=== PATIENT | male | born 2000 | race Caucasian/White ===

== ENCOUNTER 2022-03-29 18:50 | Emergency (ER) | payer OTHER ==
[~2022-03-29] VITALS: Ht 177.8 cm; Wt 74.8 kg
--- NOTE | 2022-03-29 19:33 | ED Lower Extremity ---
General Chief Complaint: Laceration Stated Complaint: RIGHT LEG LAC Nursing Triage Note: PT TO RM 7 WITH CC OF R LOWER LEG LACERATION. PT STATES A GLASS FELL IN THE KITCHEN AND CUT HIM. (JENNY HARO) History of Present Illness Date Seen by Provider: Mar 29, 2022 Time Seen by Provider: 18:56 Initial Comments 22 year old male presents with laceration to right lower leg that occurred approximately 2 hours ago, when a glass fell off the counter and cut his right lower leg. Last tetanus within 5 years. Onset: just prior to arrival Pain/Injury Location: right leg Method of Injury: incised (JENNY HARO) Allergies and Home Medications Patient Home Medication List Home Medication List Reviewed: Yes (JENNY HARO) Review of Systems Constitutional: no symptoms reported, see HPI Skin: see HPI, other (laceration right lower leg) (JENNY HARO) All Other Systems Reviewed Negative Unless Noted: Yes (JENNY HARO) Past Zzfcmbo-Jagnbs-Gtrrcl Hx Patient Social History Tobacco Use?: No Substance use?: No Alcohol Use?: No Pt feels they are or have been: No (JENNY HARO) Family Medical History Reviewed Nursing Family Hx (JENNY HARO) Physical Exam Vital Signs Vital Signs - First Documented 03/29/22 18:56 Temp 36.4 Pulse 79 Resp 16 B/P (MAP) 140/85 (103) Pulse Ox 97 O2 Delivery Room Air (MARI,MANJEET K DO) Vital Signs Capillary Refill : Less Than 3 Seconds (JENNY HARO) Height, Weight, BMI Height: '" Weight: lbs. oz. kg; 23.00 BMI Method: General Appearance: WD/WN, no apparent distress Cardiovascular: normal peripheral pulses, regular rate, rhythm Respiratory: chest non-tender, lungs clear, normal breath sounds Legs: right leg non-tender, right leg normal range of motion, right leg other (1.5 cm laceration, no active bleeding. ) Neurologic/Psychiatric: no motor/sensory deficits, alert, normal mood/affect, oriented x 3 Skin: normal color, warm/dry (JENNY HARO) Procedures/Interventions Wound Location: Lower Extremities (right lower leg, medial aspect) Wound Length (cm): 1.5 Wound's Depth, Shape: superficial Wound Explored: clean Irrigated w/ Saline (ccs): 100 Betadine Prep?: Yes Anesthesia: 1% Lidocaine Volume Anesthetic (ccs): 4 Suture Size: 4-0 Number of Sutures: 2 Sterile Dressing Applied?: Yes Progress Wound well approximated, bulky dressing in place, patient tolerated well. (JENNY HARO) Progress/Results/Core Measures Results/Orders Vital Signs/I&O 03/29/22 03/29/22 18:56 19:35 Temp 36.4 Pulse 79 79 Resp 16 16 B/P (MAP) 140/85 (103) 140/85 Pulse Ox 97 97 O2 Delivery Room Air Room Air (MANJEET GUERRA DO) Blood Pressure Mean: 103 Departure Impression Primary Impression: Laceration of right lower leg Qualified Codes: S81.811A - Laceration without foreign body, right lower leg , initial encounter Disposition: HOME, SELF-CARE Condition: Improved Departure-Patient Inst. Decision time for Depature: 19:15 (JENNY HARO) Referrals: NO,LOCAL PHYSICIAN (PCP) Primary Care Physician LAURIE MURRAY MD Patient Instructions: Laceration Repair With Stitches (DC) Add. Discharge Instructions: Keep the dressing dry and in place for 24 hours, you may re-inforce if needed. Do not submerge the wound in standing water (tub, pool, sink, palomares, etc). Leave sutures in place, return to Emergency Dept or [facility] in 7-10 days for removal. You may shower, do not have water hit directly over wound. Clean with peroxide after shower, leave open to air when at home, cover with dressing or band-aid when out of the house. Watch for signs of infection: Redness, increased tenderness, warmth, discolored drainage or foul smelling drainage. Return to the emergency department for new, urgent health care problems. All discharge instructions reviewed with patient and/or family. Voiced understanding. ATTENDING PHYSICIAN NOTE: I WAS PHYSICALLY PRESENT ER PHYSICIAN, BUT I WAS NOT INVOLVED IN ANY DECISION MAKING OR ANY CARE OF THIS PATIENT, AND I AM NOT COLLABORATING PHYSICIAN. (MANJEET GUERRA DO) Copy Copies To 1: LAURIE MURRAY MD, AMY ARNP Mar 29, 2022 19:33 MANJEET GUERRA DO Mar 30, 2022 00:40
[2022-03-29 19:35] VITALS: BP 140/85
== END 2022-03-29 19:35 | disposition home or self-care (01) ==
LOC: ER 18:53
DX: S81.811A Laceration without foreign body, right lower leg, initial encounter (principal); Z28.310 Unvaccinated for COVID-19; W25.XXXA Contact with sharp glass, initial encounter

== ENCOUNTER 2023-05-15 16:06 | Emergency (ER) | payer OTHER ==
[~2023-05-15] VITALS: Ht 177 cm; Wt 74.8 kg
--- NOTE | 2023-05-15 16:48 | ED General ---
General Chief Complaint: Head/Cervical Problems Stated Complaint: HEAD INJ Nursing Triage Note: PATIENT REPORTS TO ED POV FOR LOW BACK PAIN. PATIENT ALSO REPORTS THAT HE NOTED BLOOD ON THIS PILLOW TODAY AFTER HE SHOWERED. PATIENT FELL OFF THE BACK OF A GOLF CART LAST WEDNESDAY AND WAS ASSESSED DENNIS. PATIENT HAD A BRAIN BLEED AT THAT TIME. DAD AT BEDSIDE WITH PATIENT. Source of Information: Patient Exam Limitations: No Limitations History of Present Illness Date Seen by Provider: May 15, 2023 Time Seen by Provider: 16:25 Initial Comments Here after noting blood on his pillow today when he woke up. Apparently last weekend he had a fall off a golf cart at cause loss of consciousness and was noted to have a brain bleed of some point after finding left hemotympanums at the emergency department. He was admitted to [facility] for the this overnight and then discharged next day with follow-up in June. He was told to follow concussion instructions but they are confused about that. Over the last 2 days he has developed some increasing low back pain especially on the left and does have abrasion in the area of pain. States he is not sure if it is from laying around or from something else but wanted to get checked out. Denies difficulty with bowel or bladder and denies numbness between his legs or difficulty walking although it takes him a while to get going sometimes because of the pain. He states he will get some shooting pain on the left to the left hip area and that will happen about 3 times and then he is able to start walking and then he is okay but still sore on his low back bilateral after that. Denies numbness between his legs, fevers or pain in this area after injury. This is only, over the last 2 days. Denies persistent bleeding and is not sure if he had a nosebleed or if it came from his ear but he believes it came from his left ear. States is not currently bleeding anywhere. Does complain of some fullness of the left ear. He does state that his head feels better today that it has all week. Timing/Duration: 2-3 Days Severity: Moderate Associated Systoms: No Headaches, No Nausea/Vomiting, No Shortness of Air, No Weakness Allergies and Home Medications Patient Home Medication List Home Medication List Reviewed: Yes Review of Systems Review of Systems Constitutional: see HPI; No fever EENTM: ear discharge, ear pain (Wellness) Respiratory: No cough, No short of breath Cardiovascular: No chest pain, No edema Gastrointestinal: No nausea, No vomiting Genitourinary: no symptoms reported Musculoskeletal: back pain, muscle pain Skin: change in color, lesions Psychiatric/Neurological: Denies Headache, Denies Weakness Past Unbohej-Onjhsm-Zctfsv Hx Patient Social History Tobacco Use?: Yes Smoking Status: Light Tobacco Smoker Use of E-Cig and/or Vaping dev: Yes E-Cig or Vaping type used: Nicotine Use of E-Cig and/or Vaping Torsten: Light User Substance type: Marijuana Substance frequency: Once in a while Alcohol Use?: Yes Alcohol type: Beer Alcohol Frequency: Couple times a week Pt feels they are or have been: No Past Medical History Surgery/Hospitalization HX: DENIES PMH. SURG. TUBES BILATERALLY A CHILD. Surgeries: Yes Ear Surgery Neurological: Yes Concussion Family Medical History Reviewed Nursing Family Hx Physical Exam Vital Signs Vital Signs - First Documented 05/15/23 16:12 Temp 36.0 Pulse 66 Resp 18 B/P (MAP) 133/77 (95) Pulse Ox 100 O2 Delivery Room Air Capillary Refill : Less Than 3 Seconds Height, Weight, BMI Height: '" Weight: lbs. oz. kg; 23.00 BMI Method: General Appearance: No Apparent Distress, WD/WN HEENT: PERRL/EOMI, Pharynx Normal, Other (Left hemotympanums noted without obvious rupture. No bloody drainage noted. Nares evaluated and left nare does have some dryness but no active bleeding and no obvious old blood. Pharynx is normal.) Neck: Non Tender, Supple Respiratory: Lungs Clear, Normal Breath Sounds Cardiovascular: Regular Rate, Rhythm, No Murmur Back: No Vertebral Tenderness, Muscle Spasm (Bilateral low back with left greater than right) Neurologic/Psychiatric: Alert, Oriented x3 Skin: Warm/Dry, Other (Abrasion noted to the area of the left low back. Pelvis is stable and hips are nontender. No obvious deformity near area of abrasion. Healing wounds to the top of both shoulders.) Procedures/Interventions Suture Size: 4-0 Progress/Results/Core Measures Suspected Sepsis SIRS Temperature: Pulse: 66 Respiratory Rate: 18 Blood Pressure 133 /77 Mean: 95 Results/Orders Vital Signs/I&O 05/15/23 16:12 Temp 36.0 Pulse 66 Resp 18 B/P (MAP) 133/77 (95) Pulse Ox 100 O2 Delivery Room Air Capillary Refill : Less Than 3 Seconds Blood Pressure Mean: 95 Progress Note : Progress Note Seen and evaluated. We did discuss at length the option of rescanning the head and also potentially CT scan of the lumbar spine. Given that his headache has improved to this point and he does not have persistent bleeding, I do not believe CT scan of the head is indicated and this was discussed with the patient and his father. We also discussed the option of CT scan of the lumbar spine/pelvis due to the injury. He did not have pain until 2 days ago and he is still able to walk and he has no red flags. I do not believe imaging is needed at this point and this is likely more musculoskeletal strain after the injury and from resting all week. We did discuss follow-up options and plan. He will follow-up with student health at [facility]. I did give him information for Dr. Little secondary to the hemotympanums. They will work on those appointments and he will keep appointment with the doctor as scheduled in June from [place]. I did discuss [id number] options and therapy and the need for rest and also that joey Galvin protocol for return to school that he can work with [facility] on her discharged home with return precautions. Patient and father verbalized understanding of instructions and agreement with plan. Departure Impression Primary Impression: Hematotympanum of left ear Additional Impressions: Concussion Qualified Codes: S06.0X9D - Concussion with loss of consciousness of unspecified duration, subsequent encounter Low back strain Qualified Codes: S39.012A - Strain of muscle, fascia and tendon of lower back, initial encounter Disposition: 01 HOME, SELF-CARE Condition: Stable Departure-Patient Inst. Decision time for Depature: 16:44 Referrals: ASIA LITTLE MD NO,LOCAL PHYSICIAN (PCP) Primary Care Physician Patient Instructions: Back Muscle Strain, Concussion in adults, Intracranial Hematoma, Muscle Strain (DC), Postconcussion syndrome Add. Discharge Instructions: All discharge instructions reviewed with patient and/or family. Voiced understanding. You are likely suffering from low back strain after your injury. You may take ibuprofen 600 mg every 8 hours as needed for pain. You may also take Tylenol/acetaminophen 1000 mg every 8 hours as needed for pain. You may use [id number] Icy Hot with lidocaine patches or cream, Aspercreme with lidocaine patches or cream, Salonpas with lidocaine patches or cream or similar items to area of concern per package directions. May use ice or heat to areas o f concern as needed whichever is more comfortable. It is very important that you rest after head injury and while healing from concussion. You have blood behind the eardrum on the left (hemotympanums) and you need to have follow-up with an ear nose and throat surgeon. You may follow-up with Dr. Little clinic and you can call for appointment at the phone number above. You should also follow-up with [facility] student health to have further evaluation related to your concussion and return to school program. Return for vision or balance problems, difficulty with mentation, increasing headache, increasing nausea or vomiting, dizziness, seizures, difficulty with going to the bathroom or walking or other concerns as needed. PATRICE ROLAND MD May 15, 2023 16:48
[2023-05-15 16:58] VITALS: BP 117/62
== END 2023-05-15 16:58 | disposition home or self-care (01) ==
LOC: EDUNIT# 16:06 → ER 16:09
DX: S06.0XAA Concussion with loss of consciousness status unknown, initial encounter (principal); S39.012A Strain of muscle, fascia and tendon of lower back, initial encounter; H73.92 Unspecified disorder of tympanic membrane, left ear; F17.290 Nicotine dependence, other tobacco product, uncomplicated; W18.30XA Fall on same level, unspecified, initial encounter